=== PATIENT | female | born 1990 | race Caucasian/White ===

== ENCOUNTER 2019-04-29 12:19 | Emergency (ER) | payer BC, OTHER ==
[2019-04-29 12:39] VITALS: BP 115/65
--- NOTE | 2019-04-29 12:49 | UC ---
Throat Pain/Nasal [place] HPI - HPI Summary HPI Summary: pt states she was seen at a walk in clinic on 04/16 for sinus congestion and pressure and was given a nasal spray which she used daily x 1 week. This past week, her symptoms have moved into her lungs and she is coughing and having chest congestion. Denies fever. - History of Current Complaint Chief Complaint: UCRespiratory Stated Complaint: CHEST CONGESTION Time Seen by Provider: 04/29/19 12:36 Hx Obtained From: Patient Hx Last Menstrual Period: 03/31/19 ?: No Onset/Duration: Sudden Onset, Lasting Weeks Pain Intensity: 0 Associated Signs & Symptoms: Positive: Dysphagia, Wheezing, Sinus Discomfort, Nasal Discharge - Allergies/Home Medications Allergies/Adverse Reactions: Allergies Allergy/AdvReac Type Severity Reaction Status Date / Time No Known Allergies Allergy Verified 04/29/19 12:39 PMH/Surg Hx/FS Hx/Imm Hx Previously Healthy: Yes - Surgical History Surgical History: None - Family History Known Family History: Negative: Hypertension - Social History Alcohol Use: Rare Substance Use Type: None Smoking Status (MU): Never Smoked Tobacco Review of Systems All Other Systems Reviewed And Are Negative: Yes Constitutional: Positive: Fatigue ENT: Positive: Sore Throat, Nasal Discharge, Sinus Congestion Respiratory: Positive: Shortness Of Breath, Cough Is Patient Immunocompromised?: No Physical Exam Triage Information Reviewed: Yes Appearance: Well-Nourished, Ill-Appearing, Pain Distress Vital Signs: Initial Vital Signs Temp 99 F 04/29/19 12:34 Pulse 73 04/29/19 12:34 Resp 14 04/29/19 12:34 BP 115/65 04/29/19 12:34 Pulse Ox 100 04/29/19 12:34 Vital Signs Reviewed: Yes Eye Exam: Normal ENT: Positive: Pharyngeal erythema - with PND, Nasal congestion, TM bulging - bilateral Dental Exam: Normal Respiratory: Positive: Chest non-tender, No respiratory distress, No accessory muscle use, Decreased breath sounds, Rhonchi, Wheezing, Inspiration Cardiovascular Exam: Normal Cardiovascular: Positive: RRR, No Murmur, Pulses Normal Abdominal Exam: Normal Bowel Sounds: Positive: Present Musculoskeletal Exam: Normal Neurological Exam: Normal Psychological Exam: Normal Skin Exam: Normal Throat Pain/Nasal Course/Dx - Course Course Of Treatment: hx obtained, exam performed ,meds reviewed, treated for sinusitis and wheezing - Differential Dx/Diagnosis Differential Diagnosis/HQI/PQRI: Otitis Media, Sinusitis, URI Provider Diagnosis: Sinusitis, Wheezing Discharge - Sign-Out/Discharge Documenting (check all that apply): Patient Departure All imaging exams completed and their final reports reviewed: No Studies - Discharge Plan Condition: Stable Disposition: HOME Prescriptions: Azithromycin TAB* [Zithromax TAB (Z-SILVA) 250 mg #6 tabs] 2 tab PO .TODAY, THEN 1 DAILY #1 silva predniSONE [Prednisone 20 MG TAB] 40 mg PO DAILY #10 tablet Patient Education Materials: Sinusitis (ED) Referrals: No Primary Care Phys,NOPCP [Primary Care Provider] - Additional Instructions: 1. take the medication as prescribed 2. Salt water gargles and increase your clear fluid intake 3. Follow up if not improving in the next 7-10 days - Billing Disposition and Condition Condition: STABLE Disposition: Home
== END 2019-04-29 12:57 | disposition home or self-care (01) ==
LOC: UCCORT 12:19
DX: J32.9 Chronic sinusitis, unspecified (principal); R06.2 Wheezing
CPT/HCPCS: 99202; G0463